=== PATIENT | male | born 1975 | race Caucasian/White ===

== ENCOUNTER → 2021-01-02 | Outpatient (CLI) | payer MEDICARE ==
[2021-01-02 10:27] LABS: HEMOGLOBIN 13.7 g/dl (13.5-17.5); MEAN CORPUSCULAR HEMOGLOBIN 27.2 pg (27.0-33.0); MEAN CORPUSCULAR HGB CONC 30.4 g/dl (32.0-36.5); MEAN CORPUSCULAR VOLUME 89.5 fl (80.0-96.0); PLATELET COUNT, AUTOMATED 240 10^3/uL (150-450); RED BLOOD COUNT 5.03 10^6/uL (4.30-6.10); WHITE BLOOD COUNT 7.6 10^3/uL (4.0-10.0)
[2021-01-02 10:46] LABS: ALBUMIN 3.6 GM/DL (3.2-5.2); ALT/SGPT 28 U/L (12-78); BILIRUBIN,TOTAL 0.5 MG/DL (0.2-1.0); BLOOD UREA NITROGEN 25 MG/DL (7-18); CALCIUM LEVEL 9.4 MG/DL (8.5-10.1); CARBON DIOXIDE LEVEL 32 MEQ/L (21-32); CHLORIDE LEVEL 102 MEQ/L (98-107); CREATININE FOR GFR 1.04 MG/DL (0.70-1.30); GLOMERULAR FILTRATION RATE > 60.0 (>60); GLUCOSE, FASTING 98 MG/DL (70-100); POTASSIUM SERUM 5.3 MEQ/L (3.5-5.1); SODIUM LEVEL 138 MEQ/L (136-145); TOTAL PROTEIN 6.8 GM/DL (6.4-8.2)
[2021-01-02 11:42] LABS: GC DNA AMPLIFICATION NEGATIVE (NEGATIVE)
--- NOTE | 2021-01-03 15:05 | ECGEPIP ---
[facility] Test Date: 2021-01-02 Pat Name: ALIZA RICH JR Department: Room: - Gender: Male Executive Sales Manager: AMINATA : 1975 Requested By: Morris Zamora Order Number: [id number] Reading MD: Niya Braga Measurements Intervals [place] Rate: 86 P: 55 RI: 152 QRS: 40 QRSD: 78 T: 37 QT: 334 QTc: 399 Interpretive Statements Normal sinus rhythm No prior Electronically Signed on 01-03-2021 15:05:07 EDT by Niya Braga
[2021-01-04 11:43] LABS: HEPATITIS B SURFACE ANTIGEN NEGATIVE (NEGATIVE)
[2021-01-04 12:11] LABS: HIV 1&2 SCREEN CENTAUR NEGATIVE (NEGATIVE)
== END ==
LOC: M LAB 09:46
PROVIDERS: ATTEND Family Medicine
DX: F11.20 Opioid dependence, uncomplicated (principal)

== ENCOUNTER → 2021-01-04 | Outpatient (CLI) | payer MEDICARE ==
[2021-01-04 15:25] LABS: APPEARANCE, URINE CLEAR (CLEAR); BILIRUBIN, URINE AUTO NEGATIVE (NEGATIVE); BLOOD, URINE BLOOD 1+ (NEGATIVE); COLOR, URINE YELLOW (YELLOW); GLUCOSE, URINE (UA) AUTO NEGATIVE (NEGATIVE); KETONE, URINE AUTO NEGATIVE (NEGATIVE); LEUKOCYTE ESTERASE, URINE AUTO NEGATIVE (NEGATIVE); NITRITE, URINE AUTO NEGATIVE (NEGATIVE); PROTEIN, URINE AUTO NEGATIVE (NEGATIVE); SPECIFIC GRAVITY URINE AUTO 1.021 (1.002-1.035); UROBILINOGEN, URINE AUTO 0.2 mg/dL (0.0-2.0)
[2021-01-04 15:27] LABS: BASO % 0.4 % (0.0-1.0); EOS # 0.2 10^3/uL (0.0-0.5); EOS % 2.3 % (0.0-3.0); HEMATOCRIT 44.4 % (42.0-52.0); HEMOGLOBIN 13.7 g/dl (13.5-17.5); LYMPH # 2.2 10^3/uL (1.5-5.0); LYMPH % 29.2 % (24.0-44.0); MEAN CORPUSCULAR HEMOGLOBIN 27.3 pg (27.0-33.0); MEAN CORPUSCULAR HGB CONC 30.9 g/dl (32.0-36.5); MEAN CORPUSCULAR VOLUME 88.6 fl (80.0-96.0); MONO # 0.5 10^3/uL (0.0-0.8); MONO % 6.5 % (2.0-8.0); NEUTROPHILS # 4.7 10^3/uL (1.5-8.5); NEUTROPHILS % 61.2 % (36.0-66.0); PLATELET COUNT, AUTOMATED 238 10^3/uL (150-450); RED BLOOD COUNT 5.01 10^6/uL (4.30-6.10); WHITE BLOOD COUNT 7.7 10^3/uL (4.0-10.0)
[2021-01-04 15:27] LABS: BACTERIA, URINE AUTO NEGATIVE (NEGATIVE); MUCUS, URINE SMALL (NEGATIVE); RBC, URINE AUTO 0 /HPF (0-3); SQUAMOUS EPITHELIAL CELL UR AU 2 /HPF (0-6); WBC, URINE AUTO 1 /HPF (0-3)
[2021-01-04 15:50] LABS: ALBUMIN 3.6 GM/DL (3.2-5.2); ALT/SGPT 30 U/L (12-78); BILIRUBIN,TOTAL 0.3 MG/DL (0.2-1.0); BLOOD UREA NITROGEN 23 MG/DL (7-18); CALCIUM LEVEL 9.1 MG/DL (8.5-10.1); CARBON DIOXIDE LEVEL 31 MEQ/L (21-32); CHLORIDE LEVEL 105 MEQ/L (98-107); GLOMERULAR FILTRATION RATE > 60.0 (>60); GLUCOSE, FASTING 84 MG/DL (70-100); POTASSIUM SERUM 4.8 MEQ/L (3.5-5.1); SODIUM LEVEL 140 MEQ/L (136-145); TOTAL PROTEIN 6.9 GM/DL (6.4-8.2)
[2021-01-04 16:12] LABS: HEPATITIS B SURFACE ANTIGEN NEGATIVE (NEGATIVE)
[2021-01-04 16:39] LABS: HEPATITIS B CORE ANTIBODY IGM NEGATIVE (NEGATIVE)
[2021-01-04 16:41] LABS: HEPATITIS A ANTIBODY IGM NEGATIVE (NEGATIVE)
== END ==
LOC: M LAB 14:30
PROVIDERS: ATTEND Physician Assistant Medical
DX: Z02.2 Encounter for examination for admission to residential institution (principal)

== ENCOUNTER 2021-02-13 12:12 | Emergency (ER) | payer MEDICARE, MEDICAID ==
[~2021-02-13] VITALS: Ht 170.2 cm; Wt 97.3 kg
[2021-02-13 12:12] VITALS: BP 128/72
--- OUTSIDE RECORDS SUMMARY | 2021-02-13 12:16 | CCD ---
Author Author [facility] Address Unknown Phone Unavailable Support Name Relationship Address Phone UE Next Of Kin Unknown Unavailable [place] [address] Re-disclosure Warning The records that you are about to access may contain information from federally-assisted alcohol or drug abuse programs. If such information is present, then the following federally mandated warning applies: This information has been disclosed to you from records protected by federal confidentiality rules (42 CFR part 2). The federal rules prohibit you from making any further disclosure of this information unless further disclosure is expressly permitted by the written consent of the person to whom it pertains or as otherwise permitted by 42 CFR part 2. A general authorization for the release of medical or other information is NOT sufficient for this purpose. The Federal rules restrict any use of the information to criminally investigate or prosecute any alcohol or drug abuse patient.The records that you are about to access may contain highly sensitive health information, the redisclosure of which is protected by Article 27-F of the [facility] Public Health law. If you continue you may have access to information: Regarding HIV / AIDS; Provided by facilities licensed or operated by the [facility] Office of Mental Health; or Provided by the [facility] Office for People With Developmental Disabilities. If such information is present, then the following [facility] mandated warning applies: This information has been disclosed to you from confidential records which are protected by state law. State law prohibits you from making any further disclosure of this information without the specific written consent of the person to whom it pertains, or as otherwise permitted by law. Any unauthorized further disclosure in violation of state law may result in a fine or mcfp sentence or both. A general authorization for the release of medical or other information is NOT sufficient authorization for further disc losure. Medications No Information Insurance Providers Payer name Policy type / Coverage type Policy ID Covered green party ID Covered green party's relationship to hansen Policy Hansen Plan Information MEDICARE [id number] Problems, Conditions, and Diagnoses No Information Surgeries/Procedures No Information Results No Information Social History No Information
--- NOTE | 2021-02-13 12:48 | REP ---
INDICATION: pain after a fall. COMPARISON: None. TECHNIQUE: Four views of the right knee were obtained. FINDINGS: There is no evidence of fracture or dislocation. There are no joint space abnormalities. There is no knee joint effusion. There is enthesopathy of the patella. The periarticular soft tissues are unremarkable. IMPRESSION: 1. No evidence of fracture or significant arthropathy. 2. Enthesopathy of the patella. <Electronically signed by Prashanth Dawn > 02/13/21 [id number]
--- OUTSIDE RECORDS SUMMARY | 2021-02-13 13:15 | CCD ---
Author Author [facility] Address Unknown Phone Unavailable Support Name Relationship Address Phone UE Next Of Kin Unknown Unavailable PREM MELENDE[place] [address] Re-disclosure Warning The records that [...] is protected by Article 27-F of the [facility] Public Health law. If you continue you may have access to information: Regarding HIV / AIDS; Provided by facilities licensed or operated by the [facility] Office of Mental Health; or Provided by the [facility] Office for People With Developmental Disabilities. If such information is present, then the following [facility] mandated warning applies: This information has been [...] law may result in a fine or residential sentence or both. A general authorization for the release of medical or other information is NOT sufficient authorization for further disc losure. Medications No Information Insurance Providers Payer name Policy type / Coverage type Policy ID Covered republican ID Covered republican's relationship to hansen Policy Hansen Plan Information MEDICARE [id number] Problems, Conditions, and Diagnoses No Information Surgeries/Procedures No Information Results No Information Social History No Information
[2021-02-13] MEDS ORDERED: ACETAMINOPHEN 325 MG TAB PO ONE (13:55)
[2021-02-13] MEDS ORDERED: TYLE650T38 PO (13:57)
== END 2021-02-13 14:18 | disposition home or self-care (01) ==
LOC: M ED 12:12
DX: S80.01XA Contusion of right knee, initial encounter (principal); W01.0XXA Fall on same level from slipping, tripping and stumbling without subsequent striking against object, initial encounter; Y92.009 Unspecified place in unspecified non-institutional (private) residence as the place of occurrence of the external cause; Y93.9 Activity, unspecified; Y99.9 Unspecified external cause status; Z88.6 Allergy status to analgesic agent; M77.9 Enthesopathy, unspecified

== ENCOUNTER 2022-01-24 11:54 | Observation (INO) | payer MEDICARE, MEDICAID ==
[~2022-01-24] VITALS: Ht 170.2 cm; Wt 86.9 kg
[~2022-01-24 11:54] MED LIST: TYLE650T38 PO
[2022-01-24] MEDS ORDERED: NS 500 ML IV ONE (12:50)
[2022-01-24 12:58] LABS: BASO % 0.4 % (0.0-1.0); EOS # 0.1 10^3/uL (0.0-0.5); HEMATOCRIT 46.7 % (42.0-52.0); HEMOGLOBIN 15.3 g/dl (13.5-17.5); LYMPH # 1.6 10^3/uL (1.5-5.0); MEAN CORPUSCULAR HEMOGLOBIN 28.2 pg (27.0-33.0); MEAN CORPUSCULAR HGB CONC 32.8 g/dl (32.0-36.5); MONO # 0.6 10^3/uL (0.0-0.8); MONO % 6.1 % (2.0-8.0); NEUTROPHILS # 6.7 10^3/uL (1.5-8.5); NEUTROPHILS % 73.9 % (36.0-66.0); PLATELET COUNT, AUTOMATED 205 10^3/uL (150-450); RED BLOOD COUNT 5.43 10^6/uL (4.30-6.10)
[2022-01-24 13:24] LABS: INR 1.03; PARTIAL THROMBOPLASTIN TIME 26.8 SECONDS (24.8-34.2); PROTHROMBIN TIME 13.7 SECONDS (12.5-14.5)
[2022-01-24 13:43] LABS: CPK CREATINE PHOSPHOKINASE 32 U/L (39-308)
[2022-01-24 13:48] LABS: CALCIUM LEVEL 9.1 MG/DL (8.5-10.1); CREATININE FOR GFR 1.6 MG/DL (0.70-1.30); FREE T4 1.24 NG/DL (0.76-1.46); MAGNESIUM LEVEL 2.1 MG/DL (1.8-2.4); POTASSIUM SERUM 4.1 MEQ/L (3.5-5.1); THYROID STIMULATING HORMONE 3.26 uIU/ML (0.358-3.740)
[2022-01-24 13:49] LABS: RSV AMPLIFICATION NEGATIVE (NEGATIVE)
[2022-01-24] MEDS ORDERED: ISOVUE-370 76% 100ML VIAL As Ordered ONE (14:22)
[2022-01-24 14:46] LABS: CPK CREATINE PHOSPHOKINASE 39 U/L (39-308)
[2022-01-24] MEDS ORDERED: MECLIZINE 25 MG TABLET PO ONE (15:15)
[2022-01-24] MEDS ORDERED: FAMO20TA5 PO (16:10)
[2022-01-24] MEDS ORDERED: ACE65ERTAB PO (16:10)
[2022-01-24] MEDS ORDERED: ZOLO100T PO (16:10)
[2022-01-24] MEDS ORDERED: ALBU2.5V10 INH (16:10)
[2022-01-24] MEDS ORDERED: BUSP15TA47 PO (16:10)
[2022-01-24] MEDS ORDERED: CLON0.3T PO (16:10)
[2022-01-24] MEDS ORDERED: OMEP40CA5 PO (16:11)
[2022-01-24] MEDS ORDERED: HOME MED LIST COMPLETE! XX SCH (16:15)
[2022-01-24 21:00] VITALS: BP 164/98
[2022-01-24] MEDS: ACETAMINOPHEN TAB 650MG DOSE (2X325MG) PO PRN (21:18)
[2022-01-24 23:04] LABS: CPK CREATINE PHOSPHOKINASE 39 U/L (39-308)
[2022-01-25] VITALS (7 sets, daily range): BP systolic 125–175; BP diastolic 74–103
[2022-01-25] MEDS: ACETAMINOPHEN TAB 650MG DOSE (2X325MG) PO PRN (03:23)
[2022-01-25] MEDS ORDERED: MECLIZINE 25 MG TABLET PO ONE (03:25)
[2022-01-25 05:57] LABS: HEMATOCRIT 49.6 % (42.0-52.0); HEMOGLOBIN 15.5 g/dl (13.5-17.5); MEAN CORPUSCULAR HEMOGLOBIN 27.7 pg (27.0-33.0); MEAN CORPUSCULAR HGB CONC 31.3 g/dl (32.0-36.5); MEAN CORPUSCULAR VOLUME 88.7 fl (80.0-96.0); PLATELET COUNT, AUTOMATED 194 10^3/uL (150-450); RED BLOOD COUNT 5.59 10^6/uL (4.30-6.10); WHITE BLOOD COUNT 7.7 10^3/uL (4.0-10.0)
[2022-01-25 06:21] LABS: CPK CREATINE PHOSPHOKINASE 50 U/L (39-308)
[2022-01-25 06:33] LABS: BLOOD UREA NITROGEN 15 MG/DL (7-18); CALCIUM LEVEL 9.1 MG/DL (8.5-10.1); CARBON DIOXIDE LEVEL 27 MEQ/L (21-32); CHLORIDE LEVEL 107 MEQ/L (98-107); CREATININE FOR GFR 1.29 MG/DL (0.70-1.30); GLOMERULAR FILTRATION RATE > 60.0 (>60); GLUCOSE, FASTING 112 MG/DL (70-100); SODIUM LEVEL 139 MEQ/L (136-145)
[2022-01-25 06:34] LABS: ALBUMIN 3.9 GM/DL (3.2-5.2); ALT/SGPT 18 U/L (12-78); BILIRUBIN,TOTAL 0.5 MG/DL (0.2-1.0); TOTAL PROTEIN 7.1 GM/DL (6.4-8.2)
[2022-01-25] MEDS: ENOXAPARIN 40MG/0.4ML SYRINGE (J1650 PER 10MG) SC SCH (08:54)
[2022-01-25] MEDS ORDERED: INFLUENZA QUADRIVALENT PF VACCINE 0.5ML SYRINGE IM.IMMUN ONE (09:00)
[2022-01-25] MEDS ORDERED: LR 1,000 ML IV SCH (10:00)
[2022-01-25] MEDS ORDERED: ONDANSETRON 4MG ORAL DISINTEGRATING TAB SL PRN (11:05)
[2022-01-25] MEDS ORDERED: cloNIDine 0.1MG TABLET PO STA (12:48)
[2022-01-25] MEDS ORDERED: CLON0.2T PO (14:57)
[2022-01-25] MEDS ORDERED: RAME8TAB2 PO (14:57)
[2022-01-25] MEDS ORDERED: ONDA4TAB6 SL (14:57)
[2022-01-25 15:54] LABS: CPK CREATINE PHOSPHOKINASE 54 U/L (39-308)
[2022-01-25] MEDS ORDERED: RAMELTEON 8 MG TAB (ROZEREM) PO SCH (21:00)
[2022-01-26 04:16] VITALS: BP 101/58
[2022-01-26 08:00] VITALS: BP 110/60
[2022-01-26] MEDS: ENOXAPARIN 40MG/0.4ML SYRINGE (J1650 PER 10MG) SC SCH (09:25)
[2022-01-26] MEDS: ACETAMINOPHEN TAB 650MG DOSE (2X325MG) PO PRN (09:34)
[2022-01-26 12:00] VITALS: BP 129/74
[2022-01-26] MEDS ORDERED: cloNIDine 0.2 MG TAB PO SCH (21:00)
== END 2022-01-26 13:45 | disposition home or self-care (01) ==
LOC: EDBD 11:54 → M ED 11:54 → M ED INP 11:55 → M PCU 20:40
PROVIDERS: ADMIT Family Medicine; ATTEND Family Medicine
DX: R55 Syncope and collapse (principal); F11.10 Opioid abuse, uncomplicated; G47.01 Insomnia due to medical condition; S09.90XA Unspecified injury of head, initial encounter; W19.XXXA Unspecified fall, initial encounter; Y92.000 Kitchen of unspecified non-institutional (private) residence as the place of occurrence of the external cause; Z79.899 Other long term (current) drug therapy; Z88.8 Allergy status to other drugs, medicaments and biological substances; M25.531 Pain in right wrist; Z23 Encounter for immunization; Y99.9 Unspecified external cause status
CPT/HCPCS: 36415; 70450; 71045; 71275; 72125; 73110; 80048; 80053; 82550; 83735; 84439; 84443; 84484; 85025; 85027; 85610; 85730; 87631; 90686; 93005; 93041; 94760; 96361; 96372; 96374; 97112; 97161; 97530; 99285; G0008; G0378; J1650; Q9967

== ENCOUNTER → 2022-06-24 | Outpatient (CLI) | payer MEDICARE, MEDICAID ==
[~2022-06-24] MED LIST changes: +ACE65ERTAB PO; +ALBU2.5V10 INH; +BUSP15TA47 PO; +CLON0.2T PO; +CLON0.3T PO; +FAMO20TA5 PO; +OMEP40CA5 PO; +ONDA4TAB6 SL; +RAME8TAB2 PO; +ZOLO100T PO
[2022-06-24 10:50] LABS: HEMATOCRIT 45.8 % (42.0-52.0); HEMOGLOBIN 14.5 g/dl (13.5-17.5); MEAN CORPUSCULAR HEMOGLOBIN 27.4 pg (27.0-33.0); MEAN CORPUSCULAR HGB CONC 31.7 g/dl (32.0-36.5); MEAN CORPUSCULAR VOLUME 86.6 fl (80.0-96.0); PLATELET COUNT, AUTOMATED 192 10^3/uL (150-450); RED BLOOD COUNT 5.29 10^6/uL (4.30-6.10); WHITE BLOOD COUNT 8.9 10^3/uL (4.0-10.0)
[2022-06-24 11:20] LABS: ALBUMIN 3.7 G/DL (3.2-5.2); ALKALINE PHOSPHATASE 96 U/L (46-116); ALT/SGPT 26 U/L (7.0-40); AST/SGOT 20 U/L (<34); BILIRUBIN,TOTAL 0.4 MG/DL (0.3-1.2); BLOOD UREA NITROGEN 24 MG/DL (9-23); CALCIUM LEVEL 8.6 MG/DL (8.5-10.1); CARBON DIOXIDE LEVEL 29 MMOL/L (20-31); CHLORIDE LEVEL 105 MMOL/L (98-107); CHOLESTEROL LEVEL 204 MG/DL (<200); CHOLESTEROL RISK RATIO 3.93 (<5); CREATININE FOR GFR 1.16 MG/DL (0.70-1.30); GLOMERULAR FILTRATION RATE > 60.0 (>60); GLUCOSE, FASTING 101 MG/DL (60-100); HDL CHOLESTEROL 51.9 MG/DL (>40); LDL CHOLESTEROL 131.7 MG/DL (<100); NON-HDL-C 152.1 MG/DL; POTASSIUM SERUM 4.5 MMOL/L (3.5-5.1); SODIUM LEVEL 139 MMOL/L (136-145); THYROID STIMULATING HORMONE 8.441 uIU/ML (0.55-4.78); TOTAL PROTEIN 6.6 G/DL (5.7-8.2); TRIGLYCERIDES LEVEL 102 MG/DL (<150)
[2022-06-24 11:49] LABS: HIV 1&2 SCREEN CENTAUR NEGATIVE (NEGATIVE)
[2022-06-24 11:57] LABS: HEPATITIS C VIRUS ABY INDEX < 0.0 INDEX (<0.8)
== END ==
LOC: M RAD 09:26
PROVIDERS: ATTEND Physician Assistant
DX: M25.531 Pain in right wrist (principal); S80.851A Superficial foreign body, right lower leg, initial encounter; M25.561 Pain in right knee; F32.9 Major depressive disorder, single episode, unspecified; F43.10 Post-traumatic stress disorder, unspecified; F17.210 Nicotine dependence, cigarettes, uncomplicated; Z11.59 Encounter for screening for other viral diseases; Z13.220 Encounter for screening for lipoid disorders; Z83.3 Family history of diabetes mellitus; Y93.9 Activity, unspecified; Y92.9 Unspecified place or not applicable

== ENCOUNTER 2022-07-11 15:21 | Emergency (ER) | payer MEDICARE, MEDICAID ==
[~2022-07-11] VITALS: Ht 170.2 cm; Wt 91.8 kg
[2022-07-11 15:22] VITALS: BP 150/97
== END 2022-07-11 15:24 | disposition left against medical advice (07) ==
LOC: M ED 15:21
DX: Z53.21 Procedure and treatment not carried out due to patient leaving prior to being seen by health care provider (principal)

== ENCOUNTER 2022-08-10 11:56 | Day surgery (SDC) | payer MEDICARE, MEDICAID ==
[~2022-08-10] VITALS: Ht 170.2 cm; Wt 98.9 kg
[~2022-08-10 11:56] MED LIST changes: +BUSP30TA PO; +HYDR-3363 PO; +NS 1,000 ML IV ONE; +SYNT25TA PO; +TRAZ-252 PO
[2022-08-10 14:05] VITALS: BP 143/99
== END 2022-08-10 14:16 | disposition home or self-care (01) ==
LOC: M OPP 11:56
PROVIDERS: ATTEND Surgery
DX: Z12.11 Encounter for screening for malignant neoplasm of colon (principal); Z80.0 Family history of malignant neoplasm of digestive organs

== ENCOUNTER → 2022-08-25 | Outpatient (REF) | payer MEDICARE, MEDICAID, OTHER ==
[~2022-08-25] MED LIST changes: -NS 1,000 ML IV ONE
[2022-08-25 17:11] LABS: THYROID STIMULATING HORMONE 3.787 uIU/ML (0.55-4.78)
[2022-08-25 17:14] LABS: FOLATE 10.7 NG/ML (>5.4)
[2022-08-25 18:31] LABS: HEMOGLOBIN A1c 5.4 % (4.0-6.0)
== END ==
LOC: M LAB REF 16:23
PROVIDERS: ATTEND Physician Assistant
DX: R20.2 Paresthesia of skin (principal); E03.9 Hypothyroidism, unspecified; R73.01 Impaired fasting glucose

== ENCOUNTER → 2022-11-10 | Outpatient (CLI) | payer OTHER, MEDICAID | LOC: M RAD 14:50 | PROVIDERS: ATTEND Family Medicine Addiction Medicine | DX: M70.922 Unspecified soft tissue disorder related to use, overuse and pressure, left upper arm (principal) ==

== ENCOUNTER 2022-11-26 10:51 | Observation (INO) | payer OTHER, MEDICAID ==
[~2022-11-26] VITALS: Ht 170.2 cm; Wt 99.8 kg
[2022-11-26 12:56] LABS: BASO # 0.1 10^3/uL (0.0-0.2); BASO % 0.5 % (0.0-1.0); EOS # 0.2 10^3/uL (0.0-0.5); EOS % 1.6 % (0.0-3.0); HEMATOCRIT 44.6 % (42.0-52.0); HEMOGLOBIN 13.9 g/dl (13.5-17.5); LYMPH % 18.6 % (24.0-44.0); MEAN CORPUSCULAR HEMOGLOBIN 26.6 pg (27.0-33.0); MEAN CORPUSCULAR HGB CONC 31.2 g/dl (32.0-36.5); MEAN CORPUSCULAR VOLUME 85.4 fl (80.0-96.0); MONO # 0.6 10^3/uL (0.0-0.8); MONO % 5.4 % (2.0-8.0); NEUTROPHILS # 7.7 10^3/uL (1.5-8.5); NEUTROPHILS % 72.8 % (36.0-66.0); PLATELET COUNT, AUTOMATED 304 10^3/uL (150-450); RED BLOOD COUNT 5.22 10^6/uL (4.30-6.10); WHITE BLOOD COUNT 10.6 10^3/uL (4.0-10.0)
[2022-11-26 13:04] LABS: ERYTHROCYTE SEDIMENTATION RATE 38 mm/hr (0-15)
[2022-11-26 13:19] LABS: BLOOD UREA NITROGEN 11 MG/DL (9-23); CALCIUM LEVEL 8.7 MG/DL (8.5-10.1); CARBON DIOXIDE LEVEL 29 MMOL/L (20-31); CHLORIDE LEVEL 105 MMOL/L (98-107); CREATININE FOR GFR 1.07 MG/DL (0.70-1.30); GLOMERULAR FILTRATION RATE > 60.0 (>60); GLUCOSE, FASTING 102 MG/DL (60-100); POTASSIUM SERUM 4.5 MMOL/L (3.5-5.1); SODIUM LEVEL 141 MMOL/L (136-145)
[2022-11-26] MEDS ORDERED: LIDOCAINE W/EPINEPHRINE 1% 20ML VIAL SC ONE ×2 (13:45→17:55)
[2022-11-26] MEDS ORDERED: DOXYCYCLINE HYCLATE 100 MG in D5W MINI-BAG PLUS 100 ML IV ONE (13:45)
[2022-11-26] MEDS ORDERED: NS 1,000 ML IV ONE (14:40)
[2022-11-26] MEDS ORDERED: ISOVUE-370 76% 100ML VIAL As Ordered ONE (15:10)
[2022-11-26] MEDS ORDERED: AMPICILLIN SOD/SULBACTAM SOD 3 GM in D5W MINI-BAG PLUS 100 ML IV ONE (16:55)
[2022-11-26] MEDS ORDERED: MED REC IN PROGRESS XX SCH (18:15)
[2022-11-26] MEDS ORDERED: HOME MED LIST COMPLETE! XX SCH (18:30)
[2022-11-26] MEDS ORDERED: ACETAMINOPHEN TAB 650MG DOSE (2X325MG) PO PRN (19:25)
[2022-11-26] MEDS ORDERED: MOM 30ML SUSPENSION UDC PO PRN (19:25)
[2022-11-26] MEDS ORDERED: DOCUSATE SODIUM 100MG CAPSULE PO PRN (19:25)
[2022-11-26 20:00] VITALS: BP 149/87; TEMP 98.1; O2SAT 99
[2022-11-26 22:00] VITALS: BP 149/87; TEMP 98.1; O2SAT 99
[2022-11-26] MEDS: AMPICILLIN SOD/SULBACTAM SOD 3 GM in D5W MINI-BAG PLUS 100 ML IV SCH (22:07)
[2022-11-27] MEDS: AMPICILLIN SOD/SULBACTAM SOD 3 GM in D5W MINI-BAG PLUS 100 ML IV SCH ×4 (04:32→22:09)
[2022-11-27 05:47] LABS: HEMATOCRIT 40.1 % (42.0-52.0); HEMOGLOBIN 12.5 g/dl (13.5-17.5); MEAN CORPUSCULAR HEMOGLOBIN 26.8 pg (27.0-33.0); MEAN CORPUSCULAR HGB CONC 31.2 g/dl (32.0-36.5); MEAN CORPUSCULAR VOLUME 86.1 fl (80.0-96.0); PLATELET COUNT, AUTOMATED 262 10^3/uL (150-450); RED BLOOD COUNT 4.66 10^6/uL (4.30-6.10); WHITE BLOOD COUNT 8.1 10^3/uL (4.0-10.0)
[2022-11-27 06:00] VITALS: BP 124/82; TEMP 97.9; O2SAT 97
[2022-11-27 06:17] LABS: BLOOD UREA NITROGEN 12 MG/DL (9-23); CALCIUM LEVEL 8.3 MG/DL (8.5-10.1); CARBON DIOXIDE LEVEL 29 MMOL/L (20-31); CHLORIDE LEVEL 107 MMOL/L (98-107); CREATININE FOR GFR 1.17 MG/DL (0.70-1.30); GLOMERULAR FILTRATION RATE > 60.0 (>60); GLUCOSE, FASTING 113 MG/DL (60-100); MAGNESIUM LEVEL 2.1 MG/DL (1.8-2.4); POTASSIUM SERUM 4.1 MMOL/L (3.5-5.1); SODIUM LEVEL 144 MMOL/L (136-145)
[2022-11-27 08:29] LABS: INR 1.09; PROTHROMBIN TIME 13.8 SECONDS (12.5-14.5)
[2022-11-27 08:30] LABS: PARTIAL THROMBOPLASTIN TIME 28.7 SECONDS (24.8-34.2)
[2022-11-27] MEDS: ENOXAPARIN 40MG/0.4ML SYRINGE (J1650 PER 10MG) SC SCH (08:44)
[2022-11-27 14:00] VITALS: BP 127/78; TEMP 97.9; O2SAT 98
[2022-11-27] MEDS: traZODone 50 MG TAB PO SCH (20:03)
[2022-11-27] MEDS: SERTRALINE 100 MG TAB PO SCH (20:04)
[2022-11-27] MEDS: busPIRone 10 MG TAB PO SCH (20:04)
[2022-11-27 20:09] VITALS: BP 128/74; TEMP 97.7; O2SAT 98
[2022-11-28] MEDS: AMPICILLIN SOD/SULBACTAM SOD 3 GM in D5W MINI-BAG PLUS 100 ML IV SCH ×4 (04:34→23:20)
[2022-11-28 05:19] VITALS: BP 113/70; TEMP 97.9; O2SAT 97
[2022-11-28] MEDS: LEVOTHYROXINE 25MCG TABLET (0.025MG) PO SCH (05:43)
[2022-11-28 06:15] LABS: HEMATOCRIT 39.8 % (42.0-52.0); HEMOGLOBIN 12.3 g/dl (13.5-17.5); MEAN CORPUSCULAR HEMOGLOBIN 26.7 pg (27.0-33.0); MEAN CORPUSCULAR HGB CONC 30.9 g/dl (32.0-36.5); MEAN CORPUSCULAR VOLUME 86.3 fl (80.0-96.0); PLATELET COUNT, AUTOMATED 245 10^3/uL (150-450); RED BLOOD COUNT 4.61 10^6/uL (4.30-6.10); WHITE BLOOD COUNT 6.7 10^3/uL (4.0-10.0)
[2022-11-28 06:47] LABS: ALBUMIN 2.9 G/DL (3.2-5.2); ALKALINE PHOSPHATASE 88 U/L (46-116); ALT/SGPT 18 U/L (7.0-40); AST/SGOT < 8 U/L (<34); BILIRUBIN,TOTAL 0.3 MG/DL (0.3-1.2); BLOOD UREA NITROGEN 19 MG/DL (9-23); CALCIUM LEVEL 8.5 MG/DL (8.5-10.1); CARBON DIOXIDE LEVEL 34 MMOL/L (20-31); CHLORIDE LEVEL 105 MMOL/L (98-107); GLOMERULAR FILTRATION RATE > 60.0 (>60); GLUCOSE, FASTING 97 MG/DL (60-100); POTASSIUM SERUM 4.1 MMOL/L (3.5-5.1); SODIUM LEVEL 144 MMOL/L (136-145)
[2022-11-28] MEDS: ENOXAPARIN 40MG/0.4ML SYRINGE (J1650 PER 10MG) SC SCH (09:00)
[2022-11-28 14:00] VITALS: BP 106/63; TEMP 98.2; O2SAT 98
[2022-11-28] MEDS: LACTOBACILLUS ACIDOPHILUS CAP (BACID) PO SCH (17:04)
[2022-11-28] MEDS: traZODone 50 MG TAB PO SCH (20:27)
[2022-11-28] MEDS: SERTRALINE 100 MG TAB PO SCH (20:27)
[2022-11-28] MEDS: busPIRone 10 MG TAB PO SCH (20:28)
[2022-11-28 21:35] VITALS: BP 140/85; TEMP 98.2; O2SAT 97
[2022-11-29] MEDS: LEVOTHYROXINE 25MCG TABLET (0.025MG) PO SCH (05:26)
[2022-11-29] MEDS: AMPICILLIN SOD/SULBACTAM SOD 3 GM in D5W MINI-BAG PLUS 100 ML IV SCH ×2 (05:26→11:06)
[2022-11-29 05:31] VITALS: BP 102/66; TEMP 97.5; O2SAT 97
[2022-11-29 06:28] LABS: HEMATOCRIT 38.9 % (42.0-52.0); HEMOGLOBIN 12.4 g/dl (13.5-17.5); MEAN CORPUSCULAR HGB CONC 31.9 g/dl (32.0-36.5); MEAN CORPUSCULAR VOLUME 84.7 fl (80.0-96.0); PLATELET COUNT, AUTOMATED 228 10^3/uL (150-450); RED BLOOD COUNT 4.59 10^6/uL (4.30-6.10); WHITE BLOOD COUNT 6.8 10^3/uL (4.0-10.0)
[2022-11-29 06:52] LABS: ALKALINE PHOSPHATASE 83 U/L (46-116); ALT/SGPT 19 U/L (7.0-40); AST/SGOT 14 U/L (<34); BILIRUBIN,TOTAL 0.2 MG/DL (0.3-1.2); BLOOD UREA NITROGEN 19 MG/DL (9-23); CALCIUM LEVEL 8.6 MG/DL (8.5-10.1); CARBON DIOXIDE LEVEL 29 MMOL/L (20-31); CHLORIDE LEVEL 104 MMOL/L (98-107); CREATININE FOR GFR 1.06 MG/DL (0.70-1.30); GLOMERULAR FILTRATION RATE > 60.0 (>60); GLUCOSE, FASTING 114 MG/DL (60-100); POTASSIUM SERUM 3.9 MMOL/L (3.5-5.1); SODIUM LEVEL 141 MMOL/L (136-145); TOTAL PROTEIN 6.1 G/DL (5.7-8.2)
[2022-11-29] MEDS: ENOXAPARIN 40MG/0.4ML SYRINGE (J1650 PER 10MG) SC SCH (09:11)
[2022-11-29] MEDS: LACTOBACILLUS ACIDOPHILUS CAP (BACID) PO SCH (09:11)
[2022-11-29] MEDS ORDERED: AMOX875T2 PO (10:27)
[2022-11-29] MEDS ORDERED: DOXY-444 PO (10:27)
[2022-11-29] MEDS ORDERED: RISATAB3 PO (10:30)
== END 2022-11-29 12:30 | disposition home or self-care (01) ==
LOC: M ED 10:51 → M ED INP 10:52 → ENRESERV 20:43 → M MSPAV 21:24
PROVIDERS: ADMIT Internal Medicine; ATTEND Internal Medicine
DX: L02.11 Cutaneous abscess of neck (principal); B95.7 Other staphylococcus as the cause of diseases classified elsewhere; I10 Essential (primary) hypertension; E03.9 Hypothyroidism, unspecified; F41.9 Anxiety disorder, unspecified; F32.A Depression, unspecified; F19.11 Other psychoactive substance abuse, in remission; Z79.899 Other long term (current) drug therapy; Z88.8 Allergy status to other drugs, medicaments and biological substances
CPT/HCPCS: 10060; 36415; 70491; 80048; 80053; 83735; 85025; 85027; 85610; 85652; 85730; 86140; 86850; 86900; 86901; 87040; 87070; 87075; 87077; 87186; 87205; 87635; 87641; 96365; 96366; 96367; 96372; 96375; 99285; G0378; J0295; J1650; Q9967

== ENCOUNTER 2023-05-20 12:51 | Emergency (ER) | payer OTHER, MEDICAID ==
[~2023-05-20] VITALS: Ht 170.2 cm; Wt 113.5 kg
[~2023-05-20 12:51] MED LIST changes: +AMOX875T2 PO; +DOXY-444 PO; +RISATAB3 PO
[2023-05-20] MEDS ORDERED: NICOTINE 21MG/24HR 1 EA TRANSDERMAL TD ONE (13:00)
[2023-05-20] MEDS ORDERED: ACETAMINOPHEN 325 MG TAB PO ONE (13:05)
[2023-05-20 14:00] VITALS: BP 135/69
[2023-05-20 14:03] LABS: RSV AMPLIFICATION NEGATIVE (NEGATIVE)
[2023-05-20 14:06] VITALS: O2SAT 98
[2023-05-20 14:12] VITALS: TEMP 99.1
[2023-05-20] MEDS ORDERED: NICO21DI37 TOP (14:17)
== END 2023-05-20 14:27 | disposition home or self-care (01) ==
LOC: EDBD 12:51 → M ED 12:51
DX: B34.8 Other viral infections of unspecified site (principal); F17.203 Nicotine dependence unspecified, with withdrawal; I10 Essential (primary) hypertension; K21.9 Gastro-esophageal reflux disease without esophagitis; F41.9 Anxiety disorder, unspecified; Z88.6 Allergy status to analgesic agent; Z79.899 Other long term (current) drug therapy

== ENCOUNTER 2023-06-09 15:30 | Emergency (ER) | payer OTHER, MEDICAID ==
[~2023-06-09 15:30] MED LIST changes: +NICO21DI37 TOP
[2023-06-09 15:31] VITALS: BP 142/87; TEMP 97.9; O2SAT 98
== END 2023-06-09 16:00 | disposition left against medical advice (07) ==
LOC: M ED 15:30
DX: Z53.21 Procedure and treatment not carried out due to patient leaving prior to being seen by health care provider (principal)

== ENCOUNTER 2023-07-19 22:50 | Emergency (ER) | payer OTHER, MEDICAID ==
[~2023-07-19] VITALS: Ht 167.6 cm; Wt 110.0 kg
[2023-07-19 23:13] VITALS: BP 153/101; TEMP 97.8; O2SAT 98
[2023-07-19 23:56] LABS: HEMATOCRIT 45.7 % (42.0-52.0); HEMOGLOBIN 14.6 g/dl (13.5-17.5); MEAN CORPUSCULAR HEMOGLOBIN 26.9 pg (27.0-33.0); MEAN CORPUSCULAR HGB CONC 31.9 g/dl (32.0-36.5); MEAN CORPUSCULAR VOLUME 84.3 fl (80.0-96.0); PLATELET COUNT, AUTOMATED 235 10^3/uL (150-450); RED BLOOD COUNT 5.42 10^6/uL (4.30-6.10); WHITE BLOOD COUNT 8.9 10^3/uL (4.0-10.0)
[2023-07-20 00:24] LABS: AMPHETAMINES LEVEL URINE NEGATIVE (NEGATIVE); BARBITURATES URINE NEGATIVE (NEGATIVE); BENZODIAZEPINES URINE NEGATIVE (NEGATIVE); CANNABINOIDS URINE NEGATIVE (NEGATIVE); COCAINE METABOLITE URINE NEGATIVE (NEGATIVE); METHADONE URINE NEGATIVE (NEGATIVE); OPIATES URINE NEGATIVE (NEGATIVE); PHENCYCLIDINE URINE NEGATIVE (NEGATIVE)
[2023-07-20 00:26] LABS: ETHYL ALCOHOL (ETHANOL) < 0.003 % (0.000-0.010)
[2023-07-20 00:28] LABS: ALBUMIN 3.7 G/DL (3.2-5.2); ALKALINE PHOSPHATASE 93 U/L (46-116); ALT/SGPT 27 U/L (7.0-40); AST/SGOT 19 U/L (<34); BILIRUBIN,DIRECT 0.2 MG/DL (<0.4); BILIRUBIN,TOTAL 0.8 MG/DL (0.3-1.2); BLOOD UREA NITROGEN 15 MG/DL (9-23); CALCIUM LEVEL 9.5 MG/DL (8.5-10.1); CARBON DIOXIDE LEVEL 28 MMOL/L (20-31); CHLORIDE LEVEL 105 MMOL/L (98-107); CREATININE FOR GFR 1.05 MG/DL (0.70-1.30); GLOMERULAR FILTRATION RATE > 60.0 (>60); GLUCOSE, FASTING 124 MG/DL (60-100); POTASSIUM SERUM 3.6 MMOL/L (3.5-5.1); SALICYLATE LEVEL < 3.0 MG/DL (<30); SODIUM LEVEL 138 MMOL/L (136-145); TOTAL PROTEIN 7.3 G/DL (5.7-8.2)
[2023-07-20 00:31] LABS: THYROID STIMULATING HORMONE 10.337 uIU/ML (0.55-4.78)
== END 2023-07-20 02:24 | disposition home or self-care (01) ==
LOC: M ED 22:50
DX: F43.0 Acute stress reaction (principal); K21.9 Gastro-esophageal reflux disease without esophagitis; I10 Essential (primary) hypertension; F17.200 Nicotine dependence, unspecified, uncomplicated; N17.9 Acute kidney failure, unspecified; Z88.6 Allergy status to analgesic agent; Z79.899 Other long term (current) drug therapy

== ENCOUNTER 2023-08-08 21:46 | Emergency (ER) | payer OTHER, MEDICAID ==
[~2023-08-08] VITALS: Ht 170.2 cm; Wt 116.2 kg
[2023-08-08 21:47] VITALS: BP 137/78; TEMP 98.1; O2SAT 95
== END 2023-08-08 22:21 | disposition left against medical advice (07) ==
LOC: M ED 21:46
DX: Z53.21 Procedure and treatment not carried out due to patient leaving prior to being seen by health care provider (principal)

== ENCOUNTER 2023-08-15 19:59 | Emergency (ER) | payer OTHER, MEDICAID ==
[~2023-08-15] VITALS: Ht 170.2 cm; Wt 112.7 kg
[~2023-08-15 19:59] MED LIST changes: +DOXY-440 PO; -DOXY-444 PO
[2023-08-15 20:06] VITALS: BP 137/93; TEMP 98.4; O2SAT 97
== END 2023-08-15 22:17 | disposition left against medical advice (07) ==
LOC: M ED 19:59 → EDBD 19:59 → M ED 22:17
DX: Z53.21 Procedure and treatment not carried out due to patient leaving prior to being seen by health care provider (principal)

== ENCOUNTER 2023-08-16 13:01 | Emergency (ER) | payer OTHER, MEDICAID ==
[~2023-08-16] VITALS: Ht 170.2 cm; Wt 114.9 kg
[2023-08-16 13:10] VITALS: BP 157/76; TEMP 98.5; O2SAT 98
[2023-08-16] MEDS: LIDOCAINE 5% (LIDODERM) PATCH TD ONE (14:43)
[2023-08-16] MEDS: ACETAMINOPHEN TAB 650MG DOSE (2X325MG) PO ONE (14:43)
== END 2023-08-16 16:56 | disposition left against medical advice (07) ==
LOC: EDBD 13:01 → M ED 13:01
DX: M54.50 Low back pain, unspecified (principal); F19.10 Other psychoactive substance abuse, uncomplicated; F17.200 Nicotine dependence, unspecified, uncomplicated; Z87.442 Personal history of urinary calculi; Z88.6 Allergy status to analgesic agent; Z53.9 Procedure and treatment not carried out, unspecified reason

== ENCOUNTER 2023-08-29 22:30 | Emergency (ER) | payer OTHER, MEDICAID ==
[~2023-08-29] VITALS: Ht 170.2 cm; Wt 127.7 kg
[2023-08-29 22:31] VITALS: BP 135/81; TEMP 98; O2SAT 96
[2023-08-31] MEDS ORDERED: KLON0.5T8 PO (00:52)
== END 2023-08-30 01:51 | disposition left against medical advice (07) ==
LOC: M ED 22:30
DX: Z53.21 Procedure and treatment not carried out due to patient leaving prior to being seen by health care provider (principal)

== ENCOUNTER 2023-08-30 20:38 | Emergency (ER) | payer OTHER, MEDICAID ==
[~2023-08-30] VITALS: Ht 170.2 cm; Wt 114.4 kg
[2023-08-30 21:57] LABS: HEMATOCRIT 42.3 % (42.0-52.0); HEMOGLOBIN 13.5 g/dl (13.5-17.5); MEAN CORPUSCULAR HEMOGLOBIN 26.6 pg (27.0-33.0); MEAN CORPUSCULAR HGB CONC 31.9 g/dl (32.0-36.5); MEAN CORPUSCULAR VOLUME 83.3 fl (80.0-96.0); PLATELET COUNT, AUTOMATED 215 10^3/uL (150-450); RED BLOOD COUNT 5.08 10^6/uL (4.30-6.10); WHITE BLOOD COUNT 8.9 10^3/uL (4.0-10.0)
[2023-08-30 22:20] LABS: BARBITURATES URINE NEGATIVE (NEGATIVE); CANNABINOIDS URINE NEGATIVE (NEGATIVE); COCAINE METABOLITE URINE NEGATIVE (NEGATIVE); METHADONE URINE NEGATIVE (NEGATIVE); OPIATES URINE NEGATIVE (NEGATIVE); PHENCYCLIDINE URINE NEGATIVE (NEGATIVE)
[2023-08-30 22:21] LABS: AMPHETAMINES LEVEL URINE NEGATIVE (NEGATIVE); BENZODIAZEPINES URINE NEGATIVE (NEGATIVE)
[2023-08-30 22:22] LABS: ETHYL ALCOHOL (ETHANOL) 0.009 % (0.000-0.010)
[2023-08-30 22:24] LABS: ALBUMIN 3.7 G/DL (3.2-5.2); ALKALINE PHOSPHATASE 89 U/L (46-116); ALT/SGPT 29 U/L (7.0-40); AST/SGOT 21 U/L (<34); BILIRUBIN,DIRECT 0.2 MG/DL (<0.4); BILIRUBIN,TOTAL 0.7 MG/DL (0.3-1.2); BLOOD UREA NITROGEN 21 MG/DL (9-23); CALCIUM LEVEL 9.2 MG/DL (8.5-10.1); CARBON DIOXIDE LEVEL 28 MMOL/L (20-31); CHLORIDE LEVEL 107 MMOL/L (98-107); CREATININE FOR GFR 1.22 MG/DL (0.70-1.30); GLOMERULAR FILTRATION RATE > 60.0 (>60); GLUCOSE, FASTING 96 MG/DL (60-100); POTASSIUM SERUM 3.9 MMOL/L (3.5-5.1); SALICYLATE LEVEL < 3.0 MG/DL (<30); SODIUM LEVEL 142 MMOL/L (136-145); TOTAL PROTEIN 6.8 G/DL (5.7-8.2)
[2023-08-30 22:25] LABS: THYROID STIMULATING HORMONE 6.819 uIU/ML (0.55-4.78)
[2023-08-31] MEDS ORDERED: cloNIDine 0.1MG TABLET PO ONE (00:35)
[2023-08-31] MEDS: clonazePAM 0.5 MG TAB PO ONE (00:47)
[2023-08-31] MEDS ORDERED: KLON0.5T8 PO (00:52)
[2023-08-31 01:06] VITALS: BP 167/80; TEMP 97.7; O2SAT 96
== END 2023-08-31 01:09 | disposition home or self-care (01) ==
LOC: M ED 20:38
DX: F41.9 Anxiety disorder, unspecified (principal); F43.0 Acute stress reaction; F17.200 Nicotine dependence, unspecified, uncomplicated; F10.10 Alcohol abuse, uncomplicated; Z88.6 Allergy status to analgesic agent; Z79.899 Other long term (current) drug therapy

== ENCOUNTER 2023-10-03 10:10 | Emergency (ER) | payer OTHER, MEDICAID ==
[~2023-10-03] VITALS: Ht 170.2 cm; Wt 104.5 kg
[~2023-10-03 10:10] MED LIST changes: +KLON0.5T8 PO; +ONDA-282 SL; -ONDA4TAB6 SL
[2023-10-03 12:57] LABS: Trichomonas vaginalis (AMP) NOT DETECTED (NEGATIVE)
[2023-10-03 13:07] VITALS: BP 173/89; TEMP 98.4; O2SAT 100
[2023-10-03 13:21] LABS: GC DNA AMPLIFICATION NEGATIVE (NEGATIVE)
[2023-10-03] MEDS: LIDOCAINE 1% SDV 5ML VIAL DILUENT ONE (13:35)
[2023-10-03] MEDS: DOXYCYCLINE HYCLATE 100MG TABLET PO ONE (13:35)
[2023-10-03] MEDS: cefTRIAXone 500MG VIAL IM ONE (13:35)
[2023-10-03] MEDS ORDERED: DOXY-323 PO (13:37)
== END 2023-10-03 13:43 | disposition home or self-care (01) ==
LOC: M ED 10:10 → EDBD 10:10 → M ED 13:43
DX: N45.1 Epididymitis (principal); S38.02XA Crushing injury of scrotum and testis, initial encounter; W22.8XXA Striking against or struck by other objects, initial encounter; I10 Essential (primary) hypertension; K21.9 Gastro-esophageal reflux disease without esophagitis; F19.10 Other psychoactive substance abuse, uncomplicated; F41.9 Anxiety disorder, unspecified; F32.A Depression, unspecified; N17.9 Acute kidney failure, unspecified; Z79.2 Long term (current) use of antibiotics; Z79.899 Other long term (current) drug therapy; Y92.9 Unspecified place or not applicable; Y93.89 Activity, other specified; Y99.9 Unspecified external cause status
CPT/HCPCS: 76870; 81001; 87088; 87186; 87661; 87810; 87850; 93976; 96372; 99284; J0696

== ENCOUNTER → 2023-11-04 | Outpatient (CLI) | payer OTHER, MEDICAID ==
[~2023-11-04] MED LIST changes: +CEPH500C PO; +DOXY-323 PO
[2023-11-04 15:38] LABS: BASO # 0.1 10^3/uL (0.0-0.2); BASO % 0.5 % (0.0-1.0); EOS # 0.3 10^3/uL (0.0-0.5); EOS % 2.7 % (0.0-3.0); HEMATOCRIT 44.7 % (42.0-52.0); HEMOGLOBIN 14.1 g/dl (13.5-17.5); LYMPH # 2.6 10^3/uL (1.5-5.0); LYMPH % 27.1 % (24.0-44.0); MEAN CORPUSCULAR HEMOGLOBIN 26.2 pg (27.0-33.0); MEAN CORPUSCULAR HGB CONC 31.5 g/dl (32.0-36.5); MEAN CORPUSCULAR VOLUME 82.9 fl (80.0-96.0); MONO # 0.5 10^3/uL (0.0-0.8); MONO % 5.4 % (2.0-8.0); NEUTROPHILS # 6.2 10^3/uL (1.5-8.5); NEUTROPHILS % 63.4 % (36.0-66.0); PLATELET COUNT, AUTOMATED 216 10^3/uL (150-450); RED BLOOD COUNT 5.39 10^6/uL (4.30-6.10); WHITE BLOOD COUNT 9.7 10^3/uL (4.0-10.0)
[2023-11-04 15:55] LABS: ALBUMIN 3.7 G/DL (3.2-5.2); ALKALINE PHOSPHATASE 103 U/L (46-116); ALT/SGPT 25 U/L (7.0-40); AST/SGOT 20 U/L (<34); BILIRUBIN,DIRECT 0.3 MG/DL (<0.4); BILIRUBIN,TOTAL 0.9 MG/DL (0.3-1.2); BLOOD UREA NITROGEN 19 MG/DL (9-23); CALCIUM LEVEL 9.3 MG/DL (8.5-10.1); CARBON DIOXIDE LEVEL 31 MMOL/L (20-31); CHLORIDE LEVEL 104 MMOL/L (98-107); CHOLESTEROL LEVEL 160 MG/DL (<200); CHOLESTEROL RISK RATIO 5.86 (<5); GLOMERULAR FILTRATION RATE > 60.0 (>60); GLUCOSE, FASTING 121 MG/DL (60-100); HDL CHOLESTEROL 27.3 MG/DL (>40); LDL CHOLESTEROL 92.1 MG/DL (<100); NON-HDL-C 132.7 MG/DL; POTASSIUM SERUM 4.3 MMOL/L (3.5-5.1); SODIUM LEVEL 140 MMOL/L (136-145); TRIGLYCERIDES LEVEL 203 MG/DL (<150)
== END ==
LOC: M LAB 15:04
PROVIDERS: ATTEND Registered Nurse Psychiatric/Mental Health
DX: F43.10 Post-traumatic stress disorder, unspecified (principal); Z79.899 Other long term (current) drug therapy

== ENCOUNTER 2023-12-11 23:08 | Emergency (ER) | payer OTHER, MEDICAID ==
[~2023-12-11] VITALS: Ht 170.2 cm; Wt 111.9 kg
[2023-12-11 23:11] VITALS: BP 150/92; TEMP 98.1; O2SAT 96
== END 2023-12-12 00:18 | disposition left against medical advice (07) ==
LOC: M ED 23:08
DX: Z53.21 Procedure and treatment not carried out due to patient leaving prior to being seen by health care provider (principal)

== ENCOUNTER → 2023-12-21 | Outpatient (CLI) | payer OTHER, MEDICAID | LOC: M LAB 08:42 | PROVIDERS: ATTEND Physician Assistant | DX: E03.9 Hypothyroidism, unspecified (principal) ==

== ENCOUNTER → 2024-01-02 | Outpatient (CLI) | payer OTHER, MEDICAID | LOC: M LAB 12:05 | PROVIDERS: ATTEND Physician Assistant | DX: E03.9 Hypothyroidism, unspecified (principal) ==

== ENCOUNTER 2024-02-06 03:26 | Emergency (ER) | payer MEDICAID, OTHER ==
[~2024-02-06] VITALS: Ht 170.2 cm; Wt 115.1 kg
[~2024-02-06 03:26] MED LIST changes: -DOXY-323 PO; +DOXY-441 PO
[2024-02-06 03:32] VITALS: TEMP 97.9; O2SAT 99
[2024-02-06 03:34] VITALS: BP 162/88
== END 2024-02-06 04:30 | disposition left against medical advice (07) ==
LOC: M ED 03:26
DX: Z53.21 Procedure and treatment not carried out due to patient leaving prior to being seen by health care provider (principal)

== ENCOUNTER → 2024-08-23 | Outpatient (REF) | payer OTHER, MEDICAID ==
[2024-08-23 18:37] LABS: CREATININE FOR GFR 1.25 MG/DL (0.70-1.30); POTASSIUM SERUM 4.8 MMOL/L (3.5-5.1)
[2024-08-23 18:39] LABS: THYROID STIMULATING HORMONE 3.092 uIU/ML (0.55-4.78)
[2024-08-23 18:46] LABS: HEMOGLOBIN A1c 5.9 % (4.0-6.0)
== END ==
LOC: M LAB REF 17:36
PROVIDERS: ATTEND Physician Assistant
DX: E03.9 Hypothyroidism, unspecified (principal); R73.01 Impaired fasting glucose

== ENCOUNTER 2024-12-28 13:37 | Emergency (ER) | payer MEDICARE, MEDICAID ==
[~2024-12-28] VITALS: Ht 170.2 cm; Wt 109.0 kg
[~2024-12-28 13:37] MED LIST changes: -ACE65ERTAB PO; +ACET-1593 PO
[2024-12-28 16:01] VITALS: BP 133/91; TEMP 98.2; O2SAT 99
== END 2024-12-28 16:13 | disposition home or self-care (01) ==
LOC: M ED 13:37
DX: S63.501A Unspecified sprain of right wrist, initial encounter (principal); W22.09XA Striking against other stationary object, initial encounter; I10 Essential (primary) hypertension; K21.9 Gastro-esophageal reflux disease without esophagitis; E03.9 Hypothyroidism, unspecified; F19.10 Other psychoactive substance abuse, uncomplicated; Z88.6 Allergy status to analgesic agent; Y92.9 Unspecified place or not applicable; Y93.89 Activity, other specified; Y99.9 Unspecified external cause status; Z79.899 Other long term (current) drug therapy

== ENCOUNTER → 2025-01-06 | Outpatient (REF) | payer MEDICARE, MEDICAID ==
[2025-01-06 16:50] LABS: BASO # 0.0 10^3/uL (0.0-0.2); BASO % 0.3 % (0.0-1.0); EOS # 0.2 10^3/uL (0.0-0.5); EOS % 2.0 % (0.0-3.0); LYMPH # 2.3 10^3/uL (1.5-5.0); LYMPH % 24.1 % (24.0-44.0); MONO # 0.6 10^3/uL (0.0-0.8); MONO % 6.3 % (2.0-8.0); NEUTROPHILS # 6.3 10^3/uL (1.5-8.5); NEUTROPHILS % 66.8 % (36.0-66.0); PLATELET COUNT, AUTOMATED 217 10^3/uL (150-450)
[2025-01-06 17:11] LABS: CHOLESTEROL LEVEL 164.0 MG/DL (<200); CHOLESTEROL RISK RATIO 4.8 (<5); LDL CHOLESTEROL 95.7 MG/DL (<100); NON-HDL-C 129.9 MG/DL; TRIGLYCERIDES LEVEL 171.0 MG/DL (<150)
== END ==
LOC: M LAB REF 16:12
PROVIDERS: ATTEND Nurse Practitioner Family
DX: E66.812 Obesity, class 2 (principal); R53.83 Other fatigue; E03.9 Hypothyroidism, unspecified